=== PATIENT | female | born 1955 | race Caucasian/White ===

== ENCOUNTER 2018-09-13 21:58 | Emergency (ER) | payer BC, OTHER ==
[2018-09-13] MEDS ORDERED: 0.9 % SODIUM CHLORIDE 1,000 ML BAG IV ONE (22:17)
[2018-09-13] MEDS ORDERED: ONDANSETRON HCL IV 4 MG/2 ML VIAL IV ONE (22:17)
[2018-09-13] MEDS ORDERED: HYDROMORPHONE HCL 2 MG/ML VIAL IVP ONE ×2 (22:19→23:33)
[2018-09-13 22:23] LABS: ABSOLUTE NEUTROPHIL COUNT 12.68; HEMATOCRIT 50.9 % (35.0-47.0); HEMOGLOBIN 16.7 gm/dl (11.6-16.0); MEAN CELL VOLUME 86.1 fl (81-97); MEAN CORPUSCULAR HEMOGLOBIN 28.2 pg (27-33); MEAN CORPUSCULAR HGB CONC 32.8 g/dl (32-36); MEAN PLATELET VOLUME 9.5 fl (7.4-10.4); PLATELET COUNT 497 K/uL (130-400); RED BLOOD COUNT 5.91 M/uL (3.80-5.40); RED CELL DISTRIBUTION WIDTH 14.1 % (11.5-14.5); WHITE BLOOD COUNT W/O DIFF 15.7 K/uL (4.2-12.2)
--- NOTE | 2018-09-13 22:25 | Emergency Department Record ---
History of Present Illness - General Chief Complaint: Abdominal Pain Stated Complaint: ABDOMINAL PAIN,VOMITING Time Seen by Provider: 09/13/18 22:11 Source: Patient Mode of Arrival: Ambulatory Limitations: No limitations - History of Present Illness Initial Comments: pt is having ap since yesterday. it crampy and getting worse. it feels like her previous bowel obstruction. she had a normal bm yesterday. she vomited multiple times prior to coming in. MD Complaint: Abdominal pain Onset/Timin -: Days(s) Location: Diffuse, LLQ, RLQ Severity: Severe Severity scale (1-10): 10 Quality: Fullness Consistency: Constant, Getting worse Improves With: Nothing Worsens With: Nothing Associated Symptoms: Vomiting - Related Data Patient : No Home Medications Medication Instructions Recorded Confirmed Last Taken No Home Med [NO HOME MEDS] 09/13/18 09/13/18 Unknown Allergies Allergy/AdvReac Type Severity Reaction Status Date / Time No Known Drug Intolerances Allergy Unknown Unverified 08/08/13 10:16 Allergies: Allergy Unknown Uncoded 08/08/13 10:16 Travel Screening - Travel/Exposure Within Last 30 Days Have you traveled within the last 30 days?: No Review of Systems Reviewed: No additional complaints except as noted below Constitutional: Reports: As per HPI. Denies: Chills, Fever, Malaise, Night sweats, Weakness, Weight change Eyes: Reports: As per HPI. Denies: Eye discharge, Eye pain, Photophobia, Vision change ENT: Reports: As per HPI. Denies: Congestion, Dental pain, Ear pain, Epistaxis, Hearing loss, Throat pain Respiratory: Reports: As per HPI. Denies: Cough, Dyspnea, Hemoptysis, Stridor, Wheezes Cardiovascular: Reports: As per HPI. Denies: Arrhythmia, Chest pain, Dyspnea on exertion, Edema, Murmurs, Orthopnea, Palpitations, Paroxysmal nocturnal dyspnea, Rheumatic Fever, Syncope Endocrine: Reports: As per HPI. Denies: Fatigue, Heat or cold intolerance, Polydipsia, Polyuria Gastrointestinal: Reports: As per HPI, Abdominal pain, Nausea, Vomiting. Denies: Constipation, Diarrhea, Hematemesis, Hematochezia, Melena Genitourinary: Reports: As per HPI. Denies: Abnormal menses, Discharge, Dyspareunia, Dysuria, Frequency, Hematuria, Incontinence, Retention, Urgency Musculoskeletal: Reports: As per HPI. Denies: Arthralgia, Back pain, Gout, Joint swelling, Myalgia, Neck pain Skin: Reports: As per HPI. Denies: Bruising, Change in color, Change in hair/nails, Lesions, Pruritus, Rash Neurological: Reports: As per HPI. Denies: Abnormal gait, Confusion, Headache, Numbness, Paresthesias, Seizure, Tingling, Tremors, Vertigo, Weakness Psychiatric: Reports: As per HPI. Denies: Anxiety, Auditory hallucinations, Depression, Homicidal thoughts, Suicidal thoughts, Visual hallucinations Hematological/Lymphatic: Reports: As per HPI. Denies: Anemia, Blood Clots, Easy bleeding, Easy bruising, Swollen glands Past Medical History - SOCIAL HISTORY Smoking Status: Never smoker Alcohol Use: None Drug Use: None - RESPIRATORY Hx Respiratory Disorders: No - CARDIOVASCULAR Hx Cardio Disorders: No - NEURO Hx Neuro Disorders: No - GI Hx GI Disorders: No Hx Obstructive Bowel: Yes (Bowel Obstruction) - Hx Genitourinary Disorders: No - ENDOCRINE Hx Endocrine Disorders: No - MUSCULOSKELETAL Hx Musculoskeletal Disorders: No - PSYCH Hx Psych Problems: No - HEMATOLOGY/ONCOLOGY Hx Hematology/Oncology Disorders: No Family Medical History Any Significant Family History?: Yes Hx Heart Disease: Father Physical Exam - General General Appearance: Alert, Oriented x3, Cooperative, Moderate distress - Head Head exam: Normal inspection - Eye Eye exam: Normal appearance, PERRL, EOMI Pupils: Normal accommodation - ENT ENT exam: Normal exam, Mucous membranes moist, Normal external ear exam, Normal orophraynx Ear exam: Normal external inspection. negative: External canal tenderness Nasal Exam: Normal inspection. negative: Discharge, Sinus tenderness Mouth exam: Normal external inspection, Tongue normal Teeth exam: Normal inspection. negative: Dental caries Throat exam: Normal inspection. negative: Tonsillar erythema, Tonsillar exudate - Neck Neck exam: Normal inspection, Full ROM. negative: Tenderness - Respiratory Respiratory exam: Normal lung sounds bilaterally. negative: Respiratory distress - Cardiovascular Cardiovascular Exam: Normal rhythm, Normal heart sounds, Tachycardia - GI/Abdominal GI/Abdominal exam: Diminished bowel sounds, Distended, Guarding, Tenderness - Rectal Rectal exam: Deferred - exam: Deferred - Extremities Extremities exam: Normal inspection, Full ROM, Normal capillary refill. negative: Tenderness - Back Back exam: Reports: Normal inspection, Full ROM. Denies: Muscle spasm, Rash noted, Tenderness - Neurological Neurological exam: Alert, CN II-XII intact, Normal gait, Oriented X3 - Psychiatric Psychiatric exam: Normal affect, Normal mood - Skin Skin exam: Dry, Intact, Normal color, Warm Course Vital Signs 09/13/18 21:59 Pulse Rate 106 H Respiratory 24 Rate Blood Pressure 166/98 Pulse Ox 100 Medical Decision Making - Lab Data Result diagrams: 09/13/18 22:20 09/13/18 22:20 Disposition Disposition: Transfer Clinical Impression: SBO (small bowel obstruction), Renal mass Disposition: Acute Care Hospital Transfer Transfer To: [facility] Reason For Transfer: sbo Accepting Physician: dr light Time Discussed w/Accepting Physician: 01:31 Forms: Patient Portal Access Quality - Quality Measures Quality Measures: N/A - Blood Pressure Screening Does Patient Have Any of the Following: No Blood Pressure Classification: Hypertensive Reading Systolic Measurement: 166 Diastolic Measurement: 98 Screening for High Blood Pressure: < First Hypertensive BP, F/U Documented > [G8950] First Hypertensive Follow-up Interventions: Follow-up with rescreen GT 1 day and LT 4 weeks.
[2018-09-13 22:35] LABS: BILIRUBIN,TOTAL 0.9 mg/dL (0.2-1.0); TOTAL PROTEIN 8.2 g/dL (6.6-8.7)
[2018-09-13 22:40] LABS: ALB/GLOB RATIO 1.6 (1.1-1.8)
[2018-09-13] MEDS ORDERED: ONDANSETRON HCL IV 4 MG/2 ML VIAL IVP ONE (23:33)
[2018-09-14] MEDS ORDERED: HYDROMORPHONE HCL 2 MG/ML VIAL IVP ONE (01:44)
[2018-09-14] MEDS ORDERED: PROMETHAZINE HCL 12.5 MG in 0.9 % SODIUM CHLORIDE 100ML 100 ML IVPB ONE (03:00)
--- NOTE | 2018-09-15 06:16 | CT SCAN REPORT ---
EXAM: CT SCAN ABDOMEN/PELVIS W CONTRAST HISTORY: SHARP LOWER ABDOMINAL PAIN AND TENDERNESS FOR TWO DAYS. PRIOR BOWEL OBSTRUCTIONS. TECHNIQUE: Contrast-enhanced helical CT examination of the abdomen and pelvis is performed including delayed images through the kidneys with 95 mL of Omnipaque-300 utilized. The patient could not drink diagnostic amounts of oral contrast due to vomiting. COMPARISON: CT abdomen and pelvis with contrast dated 10/09/2009. FINDINGS: Minor patchy opacities within the dependent lung bases consistent with atelectasis. Infiltrate less likely. A small sliding-type hiatal hernia is present. The wall of the distal esophagus appears borderline to mildly prominent in thickness likely due to incomplete distention though a mucosal abnormality is not entirely excluded. No pleural or pericardial effusion. The liver dome is not entirely imaged. There is mild decreased density of the liver relative to the spleen consistent with steatosis. No suspicious focal hepatic lesion is identified. There is normal variant differential perfusion within the medial segment of the left liver lobe anteriorly adjacent to the fissure of the falciform ligaments, stable. The spleen, pancreas, and adrenal glands are normal in appearance. There is a large calcified stone within the gallbladder body/neck without gallbladder wall thickening or pericholecystic fluid. This stone measures 18 mm in diameter. No gross biliary ductal dilatation. No intra-abdominal nor retroperitoneal lymphadenopathy. There are several too small to characterize hypodense lesions scattered in each kidney. These are nonspecific but likely cysts. There is a contour-deforming complex mass arising from the posterolateral upper pole of the left kidney. This measures 2.8 x 3.1 cm. Its lateral portion appears relatively cystic. The medial portion appears solid. On the initial portal venous phase images, this solid component has a density of 148 Hounsfield units while on delayed images 87 Hounsfield units. These findings are suspicious for malignancy. This mass is new since the prior 2009 examination. No obstructive uropathy. The portal vein is patent. The renal veins and IVC appear patent. There is minor atherosclerosis of the iliac arteries. No gross aneurysmal dilatation of the abdominal aorta nor iliac arteries. There is likely a nabothian cyst within the anterior aspect of the cervix measuring 9 mm. This is more pronounced than on the prior examination on which it measures 5 mm. No other uterine mass is identified. The ovaries are not enlarged. No definite intrinsic urinary bladder abnormality though evaluation is limited by lack of distention. There are multiple loops of gas and fluid distended, dilated small bowel extending to the level of the central pelvis, right of midline, where there is solid stool within the most dilated segment measuring up to 5.9 cm. There is an abrupt zone of transition with the more distal small bowel decompressed. There is associated borderline to mild wall thickening of the most dilated segment without pneumatosis intestinalis. There is a small amount of adjacent fat stranding extending inferiorly to the level of the bladder dome and trace ascites. These findings are suspicious for moderate to high-grade obstruction. Gas and stool are noted throughout a nondilated colon to the level of the rectum. There is sigmoid diverticulosis without evidence of diverticulitis. No free intraperitoneal air. The appendix is not visualized with confidence. There is mild laxity of the midline lower abdominal wall without associated herniation. No lytic or blastic bone lesion. IMPRESSION: 1. DISTAL SMALL BOWEL OBSTRUCTION, DISCUSSED ABOVE, WITH SHARP ZONE OF TRANSITION WITHIN THE RIGHT HEMIPELVIS. PLEASE SEE ABOVE FOR FULL DISCUSSION. NO ABSCESS NOR EXTRALUMINAL AIR. 2. COMPLEX ENHANCING MASS WITHIN THE UPPER POLE OF THE LEFT KIDNEY SUSPICIOUS FOR MALIGNANCY. UROLOGY CONSULTATION IS RECOMMENDED. SEVERAL, TOO SMALL TO CHARACTERIZE, HYPODENSE LESIONS SCATTERED WITHIN EACH KIDNEY ARE NONSPECIFIC BUT LIKELY CYSTS. 3. CHOLELITHIASIS. 4. HEPATIC STEATOSIS. 5. COLONIC DIVERTICULOSIS WITHOUT EVIDENCE OF DIVERTICULITIS. 6. NABOTHIAN CYST. 7. APPARENT BORDERLINE TO MILD WALL THICKENING OF THE DISTAL ESOPHAGUS LIKELY DUE TO INCOMPLETE DISTENTION THOUGH A MUCOSAL ABNORMALITY IS NOT ENTIRELY EXCLUDED. JOB NUMBER: [id number] [facility]
== END 2018-09-14 03:13 | disposition short-term general hospital (02) ==
LOC: ER 21:58
DX: K56.609 Unspecified intestinal obstruction, unspecified as to partial versus complete obstruction (principal); N28.89 Other specified disorders of kidney and ureter; R11.2 Nausea with vomiting, unspecified; R10.84 Generalized abdominal pain
CPT/HCPCS: 74177; 80053; 83605; 83690; 85027; 96374; 96375; 96376; 99285; J2405; J2550; J7030

== ENCOUNTER 2018-11-25 10:55 | Day surgery (SDC) | payer BC ==
[2018-11-25] MEDS ORDERED: FENTANYL PF 100MCG/2ML VIAL IV ONE (10:56)
[2018-11-25] MEDS ORDERED: LIDOCAINE 2% MDV (20MG/ML) 20ML VIAL IV ONE (10:56)
[2018-11-25] MEDS ORDERED: PROPOFOL 10 MG/ML VIAL IV ONE (10:56)
--- NOTE | 2018-11-26 09:51 | Operative Note ---
OPERATION: ESOPHAGOGASTRODUODENOSCOPY with biopsy. PREOPERATIVE DIAGNOSIS: Chronic right upper quadrant pain. POSTOPERATIVE DIAGNOSES: 1. LA grade B esophagitis. 2. Antral gastritis. PROCEDURE: After informed consent was obtained from the patient, she was placed in the left lateral decubitus position in the endoscopy suite, sedated and monitored by the department of anesthesia. A well-lubricated JQI557 gastroscope was placed in the posterior oropharynx under direct visualization and passed to the proximal esophagus. The endoscope was advanced through the proximal, mid, and distal esophagus. The GE junction demonstrated 2 erosions, one approximately 7 mm in length. There are also edematous changes at the squamocolumnar border. The gastric body was inspected and was unremarkable. The antrum demonstrated patchy erythematous changes and perhaps some punctate erosions. The duodenal bulb and sweep were unremarkable. J-turn views of the proximal stomach were unrevealing. The endoscope was straightened. The antrum and lesser curve were biopsied. No excessive bleeding was noted. The stomach was deflated. The endoscope removed from the patient with no new findings noted. RECOMMENDATIONS: I would suggest the patient start omeprazole 20 mg once daily. She should follow with Dr. Mesa, as I do not see any obvious endoscopic finding to explain her significant pain. As always, thank you for allowing me to participate in the healthcare of your patients. ELKE
== END 2018-11-25 12:15 | disposition home or self-care (01) ==
LOC: HOP 10:55
PROVIDERS: ATTEND Internal Medicine Gastroenterology
DX: R10.11 Right upper quadrant pain (principal); R10.13 Epigastric pain; K21.9 Gastro-esophageal reflux disease without esophagitis; K29.70 Gastritis, unspecified, without bleeding; I10 Essential (primary) hypertension

== ENCOUNTER 2019-02-09 11:15 | Inpatient (IN) | payer BC ==
[2019-02-09] MEDS ORDERED: ONDANSETRON HCL IV 4 MG/2 ML VIAL IV ONE (11:50)
[2019-02-09] MEDS ORDERED: 0.9 % SODIUM CHLORIDE 1,000 ML BAG IV ONE (11:50)
[2019-02-09] MEDS ORDERED: KETOROLAC 30 MG/ML VIAL IVP ONE (11:50)
--- NOTE | 2019-02-09 11:52 | Emergency Department Record ---
History of Present Illness - General Chief Complaint: Abdominal Pain Stated Complaint: ABD PAIN Time Seen by Provider: 02/09/19 11:31 Source: Patient, RN notes reviewed Mode of Arrival: Wheelchair - History of Present Illness Initial Comments: patient states 9 pm last night and didn't feel well and she had ablation of mass on the left kidney mass cancer one week ago at [facility] in [place] Dr MiguelRadiologist oncologist after seeing Dr Swanson urology. She deve loped abd pain and nausea at 9pm last night and no vomiting or diarrhea and PSH of GB removal september 2018 Dr Mesa and renal mass followed by Dr Swanson and had radiation ablation one week ago. approach was throught he back in three spots. No chest pain, no dyspnea and no stools. Patient states she had a bowel obstruction but didn't need surgery for that. Onset/Timin -: Hour(s) Location: Suprapubic Associated Symptoms: Nausea - Related Data Home Medications Medication Instructions Recorded Confirmed Last Taken Amlodipine Besylate 5 mg PO DAILY 02/09/19 02/09/19 02/08/19 Allergies Allergy/AdvReac Type Severity Reaction Status Date / Time No Known Drug Allergies Allergy Verified 02/09/19 11:29 Travel Screening - Travel/Exposure Within Last 30 Days Have you traveled within the last 30 days?: No - Travel/Exposure Within Last Year Have you traveled outside the [place] in the last year?: No - Additonal Travel Details Have you been exposed to anyone with a communicable illness?: No - Travel Symptoms Symptom Screening: Stomach Pain Review of Systems Reviewed: No additional complaints except as noted below Constitutional: Reports: As per HPI. Denies: Chills, Fever, Malaise, Night sweats, Weakness, Weight change Eyes: Reports: As per HPI. Denies: Eye discharge, Eye pain, Photophobia, Vision change ENT: Reports: As per HPI. Denies: Congestion, Dental pain, Ear pain, Epistaxis, Hearing loss, Throat pain Respiratory: Reports: As per HPI. Denies: Cough, Dyspnea, Hemoptysis, Stridor, Wheezes Cardiovascular: Reports: As per HPI. Denies: Arrhythmia, Chest pain, Dyspnea on exertion, Edema, Murmurs, Orthopnea, Palpitations, Paroxysmal nocturnal dyspnea, Rheumatic Fever, Syncope Endocrine: Reports: As per HPI. Denies: Fatigue, Heat or cold intolerance, Polydipsia, Polyuria Gastrointestinal: Reports: As per HPI, Abdominal pain, Nausea, Other (three hankins on back red but no signs of infection ). Denies: Constipation, Diarrhea, Hematemesis, Hematochezia, Melena, Vomiting Genitourinary: Reports: As per HPI. Denies: Abnormal menses, Discharge, Dyspareunia, Dysuria, Frequency, Hematuria, Incontinence, Retention, Urgency Musculoskeletal: Reports: As per HPI. Denies: Arthralgia, Back pain, Gout, Joint swelling, Myalgia, Neck pain Skin: Reports: As per HPI. Denies: Bruising, Change in color, Change in hair/nails, Lesions, Pruritus, Rash Neurological: Reports: As per HPI. Denies: Abnormal gait, Confusion, Headache, Numbness, Paresthesias, Seizure, Tingling, Tremors, Vertigo, Weakness Psychiatric: Reports: As per HPI. Denies: Anxiety, Auditory hallucinations, Depression, Homicidal thoughts, Suicidal thoughts, Visual hallucinations Hematological/Lymphatic: Reports: As per HPI. Denies: Anemia, Blood Clots, Easy bleeding, Easy bruising, Swollen glands Past Medical History - SOCIAL HISTORY Smoking Status: Never smoker Alcohol Use: None Drug Use: None - RESPIRATORY Hx Respiratory Disorders: No - CARDIOVASCULAR Hx Cardio Disorders: Yes Hx Hypertension: Yes - NEURO Hx Neuro Disorders: No - GI Hx GI Disorders: Yes Hx Obstructive Bowel: Yes (Bowel Obstruction) - Hx Genitourinary Disorders: No Comment:: renal mass recently dx in September 2018 - ENDOCRINE Hx Endocrine Disorders: No - MUSCULOSKELETAL Hx Musculoskeletal Disorders: No - PSYCH Hx Psych Problems: No - HEMATOLOGY/ONCOLOGY Hx Hematology/Oncology Disorders: Yes Hx Cancer: Yes (Kidney September 2018) Family Medical History Any Significant Family History?: No Hx Heart Disease: Father Physical Exam - General General Appearance: Alert, Oriented x3, Cooperative, No acute distress - Head Head exam: Normal inspection - Eye Eye exam: Normal appearance, PERRL Pupils: Normal accommodation - ENT ENT exam: Normal exam, Mucous membranes moist, Normal external ear exam, Normal orophraynx, TM's normal bilaterally Ear exam: Normal external inspection. negative: External canal tenderness Nasal Exam: Normal inspection. negative: Discharge, Sinus tenderness Mouth exam: Normal external inspection, Tongue normal Teeth exam: Normal inspection. negative: Dental caries Throat exam: Normal inspection. negative: Tonsillar erythema, Tonsillar exudate - Neck Neck exam: Normal inspection, Full ROM. negative: Tenderness - Respiratory Respiratory exam: Normal lung sounds bilaterally. negative: Respiratory distress - Cardiovascular Cardiovascular Exam: Regular rate, Normal rhythm, Normal heart sounds - GI/Abdominal GI/Abdominal exam: Soft, Guarding, Tenderness (lower abd pain seem worse on the right lower quad ). negative: Distended, Rebound, Rigid - Rectal Rectal exam: Deferred - exam: Deferred - Extremities Extremities exam: Normal inspection, Full ROM, Normal capillary refill. negative: Tenderness - Back Back exam: Reports: Normal inspection, Full ROM. Denies: Muscle spasm, Rash noted, Tenderness - Neurological Neurological exam: Alert, Normal gait, Oriented X3, Reflexes normal - Psychiatric Psychiatric exam: Normal affect, Normal mood - Skin Skin exam: Dry, Intact, Normal color, Warm Course Vital Signs 02/09/19 11:18 Temperature 97.6 F Pulse Rate 102 H Respiratory 20 Rate Blood Pressure 152/102 Pulse Ox 98 - Reevaluation(s) Reevaluation #1: discussed case with Dr Anguiano, 02/09/19 13:30 Reevaluation #2: Will admit to Dr. Mayer for observation 02/09/19 13:31 Medical Decision Making - Data Complexity MDM Data: Labs Ordered and/or Reviewed (wbc 15,700), X-Ray Ordered and/or Reviewed (colitis on the CT scan) - Lab Data Result diagrams: 02/09/19 11:30 02/09/19 11:30 Disposition Clinical Impression: Colitis Abdominal pain Qualifiers: Abdominal location: lower abdomen, unspecified Qualified Code(s): R10.30 - Lower abdominal pain, unspecified Renal cell cancer Qualifiers: Laterality: left Qualified Code(s): C64.2 - Malignant neoplasm of left kidney, except renal pelvis Decision to Admit: Admit from ER Condition: (2) Stable Instructions: Abdominal Pain (ED) Forms: Patient Portal Access Time of Disposition: 13:30 Quality - Quality Measures Quality Measures: N/A - Blood Pressure Screening Does Patient Have Any of the Following: No, Active Dx of HTN Blood Pressure Classification: Hypertensive Reading Systolic Measurement: 152 Diastolic Measurement: 102 Screening for High Blood Pressure: Patient Exclusion, Hx of HTN [G9744]
[2019-02-09] MEDS ORDERED: HYDROMORPHONE HCL 2 MG/ML VIAL IVP ONE ×2 (12:01→14:00)
[2019-02-09 12:04] LABS: ABSOLUTE NEUTROPHIL COUNT 14.66; HEMATOCRIT 47.3 % (35.0-47.0); HEMOGLOBIN 15.6 gm/dl (11.6-16.0); MEAN CELL VOLUME 87.9 fl (81-97); MEAN PLATELET VOLUME 9.1 fl (7.4-10.4); PLATELET COUNT 470 K/uL (130-400); RED BLOOD COUNT 5.38 M/uL (3.80-5.40); RED CELL DISTRIBUTION WIDTH 13.9 % (11.5-14.5); WHITE BLOOD COUNT W/O DIFF 15.7 K/uL (4.2-12.2)
[2019-02-09 12:15] LABS: BLOOD UREA NITROGEN 19 mg/dL (8-23); CREATININE 0.9 mg/dL (0.5-0.9); EST GLOMERULAR FILTRATION RATE > 60 mL/min
[2019-02-09 12:16] LABS: LIPASE 34 U/L (13-60); TOTAL PROTEIN 7.8 g/dL (6.6-8.7)
[2019-02-09 12:18] LABS: GLUCOSE,RANDOM 144 mg/dL (74-109)
[2019-02-09 12:20] LABS: ALT/SGPT 24 U/L (<33); BILIRUBIN,DIRECT 0.3 mg/dL (0-0.3)
[2019-02-09 12:21] LABS: ALBUMIN 4.8 g/dL (4.0-5.0); ALKALINE PHOSPHATASE 117 U/L (35-104); AST/SGOT 29 U/L (10.0-35.0)
[2019-02-09 13:14] LABS: URINE APPEARANCE CLEAR; URINE BILIRUBIN NEGATIVE (NEGATIVE); URINE BLOOD SMALL (NEGATIVE); URINE COLOR YELLOW; URINE GLUCOSE (UA) NEGATIVE (NEGATIVE); URINE KETONE NEGATIVE (NEGATIVE); URINE LEUKOCYTE ESTERASE NEGATIVE (NEGATIVE); URINE NITRITE NEGATIVE (NEGATIVE)
[2019-02-09 13:22] LABS: URINE EPITHELIAL CELLS NONE SEEN (FEW); URINE WBC NONE SEEN (0-2/hpf)
--- NOTE | 2019-02-09 13:22 | CT SCAN REPORT ---
EXAMINATION: CT Abdomen and Pelvis without IV Contrast EXAM DATE: 02/09/2019 12:24 PM TECHNIQUE: Standard protocol CT imaging of the abdomen and pelvis was performed without intravenous c ontrast. Lack of intravenous contrast limits soft tissue evaluation. INDICATION: abd pain lower bilateral. radiation of left kidne COMPARISON: 09/14/[address] ENCOUNTER: Not applicable CT ABDOMEN AND PELVIS FINDINGS: Lung Bases: Unremarkable Cardiovascular: Unremarkable Liver: Unremarkable Gallbladder and Biliary Tree: Surgically absent gallbladder. No biliary obstruction. Spleen: Unremarkable Pancreas: Unremarkable Kidneys and Urinary Tract: Ill-defined heterogeneously hyperdense 3.5 cm superior left renal cortical mass. Adrenals: Unremarkable Other Retroperitoneal: Unremarkable Stomach: Unremarkable Small Bowel: Unremarkable Appendix: Unremarkable Colon: Long segments of colonic wall thickening from mid transverse through distal descending colon, mild pericolonic fat stranding at distal descending colon. Moderate to marked retained colonic stool. Moderate sigmoid diverticulosis without wall thickening. Peritoneum: No ascites or free air. Lymphatics: No lymphadenopathy Bladder: Unremarkable Reproductive Tract: Unremarkable Body Wall/ Musculoskeletal: Unremarkable IMPRESSION: 1. Long segment left colonic wall thickening consistent with colitis. Consider endoscopic correlation 2. Constipation 3. Indeterminate 3.8 cm heterogeneously hyperdense superior left renal cortical mass. Recommend furth er characterization with abdominal MRI with and without gadolinium The orange significant findings protocol was initiated at 02/09/2019 1:19 PM. NOTE: There is a follow-up recommendation in this report. Dictated by: Dallin Storm MD on 02/09/2019 1:13 PM. .
[2019-02-09] MEDS ORDERED: AMPICILLIN SODIUM/SULBACTAM NA 3 G in 0.9 % SODIUM CHLORIDE 100ML 100 ML IVPB ONE (13:57)
[2019-02-09] MEDS ORDERED: ACETAMINOPHEN 325 MG TAB PO PRN (15:38)
[2019-02-09] MEDS ORDERED: 0.9 % SODIUM CHLORIDE 1000ML 3,000 ML IV ONE (15:38)
[2019-02-09] MEDS ORDERED: AL HYDROX/MAG HYDROX 30ML UD PO PRN (15:44)
[2019-02-09] MEDS: 0.9 % SODIUM CHLORIDE 1000ML 3,000 ML IV ONE ×2 (16:55→22:04)
[2019-02-09] MEDS: HYDROMORPHONE HCL 2 MG/ML VIAL IVP PRN ×2 (17:10→21:06)
[2019-02-09] MEDS: ONDANSETRON HCL IV 4 MG/2 ML VIAL IVP PRN (17:10)
[2019-02-09] MEDS: AMPICILLIN SODIUM/SULBACTAM NA 3 G in 0.9 % SODIUM CHLORIDE 100ML 100 ML IVPB SCH ×2 (20:57→21:00)
[2019-02-10] MEDS: HYDROMORPHONE HCL 2 MG/ML VIAL IVP PRN ×5 (02:13→20:26)
[2019-02-10] MEDS: AMPICILLIN SODIUM/SULBACTAM NA 3 G in 0.9 % SODIUM CHLORIDE 100ML 100 ML IVPB SCH ×5 (02:17→22:10)
[2019-02-10] MEDS: 0.9 % SODIUM CHLORIDE 1000ML 3,000 ML IV ONE (07:00)
[2019-02-10] MEDS ORDERED: BISACODYL 5 MG TABLET PO ONE ×2 (08:30→14:01)
[2019-02-10] MEDS: POLYETHYLENE GLY 17 GM PACKET PO SCH ×3 (09:27→22:20)
[2019-02-10] MEDS: ENOXAPARIN 40 MG/0.4 ML SYR SC SCH (09:28)
[2019-02-10] MEDS: AMLODIPINE BESYLATE 5MG TAB PO SCH (09:28)
[2019-02-10] MEDS: 0.9 % SODIUM CHLORIDE 1000ML 1,000 ML IV SCH ×3 (09:29→18:50)
--- NOTE | 2019-02-10 12:27 | History & Physical ---
History of Present Illness - Date of Service Date of Service for History & Physical: 02/10/19 - History of Present Illness Admitting Diagnosis: colitis. renal cancer. abdominal pain History of Present Illness: patient developed lower and left abdominl pain whic started 9PM the day prior to admission and nausea and no vomiting no chest pain and she had radiation therapy to her left kidney which has cancer one week prior. Seen in the ED by myself and given pain control and CT of abd showed left sided colitis and constipation. Patient admitted for pain control and further evaluation by GI Dr. Anguiano and discussed the case with Dr Mesa on the phone and he would be available if she gets worse. Lactic acid normal. Travel Screening - Travel/Exposure Within Last 30 Days Have you traveled within the last 30 days?: No - Travel/Exposure Within Last Year Have you traveled outside the [place] in the last year?: No - Additonal Travel Details Have you been exposed to anyone with a communicable illness?: No - Travel Symptoms Symptom Screening: None Review of Systems Constitutional: Reports: As per HPI. Denies: Chills, Fever, Malaise, Night sweats, Weakness, Weight change Eyes: Reports: As per HPI. Denies: Eye discharge, Eye pain, Photophobia, Vision change ENT: Reports: As per HPI. Denies: Congestion, Dental pain, Ear pain, Epistaxis, Hearing loss, Throat pain Respiratory: Reports: As per HPI. Denies: Cough, Dyspnea, Hemoptysis, Stridor, Wheezes Cardiovascular: Reports: As per HPI. Denies: Arrhythmia, Chest pain, Dyspnea on exertion, Edema, Murmurs, Orthopnea, Palpitations, Paroxysmal nocturnal dyspnea, Rheumatic Fever, Syncope Endocrine: Reports: As per HPI. Denies: Fatigue, Heat or cold intolerance, Polydipsia, Polyuria Gastrointestinal: Reports: As per HPI, Abdominal pain, Nausea, Other (three hankins on back red but no signs of infection ). Denies: Constipation, Diarrhea, Hematemesis, Hematochezia, Melena, Vomiting Genitourinary: Reports: As per HPI. Denies: Abnormal menses, Discharge, Dyspareunia, Dysuria, Frequency, Hematuria, Incontinence, Retention, Urgency Musculoskeletal: Reports: As per HPI. Denies: Arthralgia, Back pain, Gout, Joint swelling, Myalgia, Neck pain Skin: Reports: As per HPI. Denies: Bruising, Change in color, Change in hair/nails, Lesions, Pruritus, Rash Neurological: Reports: As per HPI. Denies: Abnormal gait, Confusion, Headache, Numbness, Paresthesias, Seizure, Tingling, Tremors, Vertigo, Weakness Psychiatric: Reports: As per HPI. Denies: Anxiety, Auditory hallucinations, Depression, Homicidal thoughts, Suicidal thoughts, Visual hallucinations Hematological/Lymphatic: Reports: As per HPI. Denies: Anemia, Blood Clots, Easy bleeding, Easy bruising, Swollen glands Past Medical History - SOCIAL HISTORY Smoking Status: Never smoker Alcohol Use: None Drug Use: None - RESPIRATORY Hx Respiratory Disorders: No - CARDIOVASCULAR Hx Cardio Disorders: Yes Hx Hypertension: Yes - NEURO Hx Neuro Disorders: No - GI Hx GI Disorders: Yes Hx Obstructive Bowel: Yes (Bowel Obstruction) - Hx Genitourinary Disorders: Yes Comment:: renal mass recently dx in September 2018 - ENDOCRINE Hx Endocrine Disorders: No - MUSCULOSKELETAL Hx Musculoskeletal Disorders: No - PSYCH Hx Psych Problems: No - HEMATOLOGY/ONCOLOGY Hx Hematology/Oncology Disorders: Yes Hx Cancer: Yes (Kidney September 2018) Family Medical History Any Significant Family History?: Yes Hx Heart Disease: Father H&P Meds/Allergies - Allergies Allergies: Allergies Allergy/AdvReac Type Severity Reaction Status Date / Time No Known Drug Allergies Allergy Verified 02/09/19 11:29 - Home Medications Home Medications Medication Instructions Recorded Confirmed Last Taken Amlodipine Besylate 5 mg PO DAILY 02/09/19 02/09/19 02/08/19 - Active Medications Active Medications: Current Medications Acetaminophen (Tylenol 325mg) 650 mg PO Q6H PRN PRN Reason: PAIN - MILD(1-4)/FEVER Al Hydroxide/Mg Hydroxide (Maalox) 30 ml PO Q4H PRN PRN Reason: HEARTBURN Amlodipine Besylate (Norvasc) 5 mg PO DAILY [facility] Last Admin: 02/10/19 09:28 Dose: 5 mg Documented by: Enoxaparin Sodium (Lovenox) 40 mg SC DAILY [facility] Last Admin: 02/10/19 09:28 Dose: 40 mg Documented by: Hydromorphone HCl (Dilaudid) 1 mg IVP Q4H PRN PRN Reason: PAIN - SEVERE (8-10) Last Admin: 02/10/19 07:58 Dose: 1 mg Documented by: Ampicillin Sodium/Sulbactam (Sodium 3 g/ Sodium Chloride) 100 mls @ 200 mls/hr IVPB Q6H [facility] Stop: 02/10/19 15:29 Last Infusion: 02/10/19 10:18 Dose: Infused Documented by: Sodium Chloride () 1,000 mls @ 200 mls/hr IV .Q5H [facility] Last Admin: 02/10/19 09:29 Dose: 200 mls/hr Documented by: Ondansetron HCl (Zofran) 4 mg IVP Q4H PRN PRN Reason: NAUSEA Last Admin: 02/09/19 17:10 Dose: 4 mg Documented by: Polyethylene Glycol (Miralax) 17 gm PO BID [facility] Last Admin: 02/10/19 09:27 Dose: 17 gm Documented by: Physical Exam - Vital Signs Vital Signs: Vital Signs - Last 24 Hrs Temp Pulse Resp BP Pulse Ox 02/10/19 11:00 98.5 F 89 20 150/80 98 02/10/19 05:14 93 H 20 155/71 94 L 02/10/19 02:00 98 H 20 157/78 94 L 02/09/19 20:00 98.2 F 91 H 18 163/92 97 02/09/19 18:00 97.9 F 94 H 16 151/89 97 02/09/19 15:34 124 H 16 164/107 96 02/09/19 13:57 88 20 154/90 95 02/09/19 12:36 97 H 18 164/85 100 - General General Appearance: Alert, Oriented x3, Cooperative, No acute distress Limitations: No limitations - Head Head exam: Normal inspection Head exam detail: negative: Abrasion, Contusion - Eye Eye exam: Normal appearance, PERRL Pupils: Normal accommodation - ENT ENT exam: Normal exam, Mucous membranes moist, Normal external ear exam, Normal orophraynx, TM's normal bilaterally Ear exam: Normal external inspection. negative: External canal tenderness Nasal Exam: Normal inspection. negative: Discharge, Sinus tenderness Mouth exam: Normal external inspection, Tongue normal Teeth exam: Normal inspection. negative: Dental caries Throat exam: Normal inspection. negative: Tonsillar erythema, Tonsillar exudate - Neck Neck exam: Normal inspection, Full ROM. negative: Tenderness - Respiratory Respiratory exam: Normal lung sounds bilaterally. negative: Respiratory distress - Cardiovascular Cardiovascular Exam: Regular rate, Normal rhythm, Normal heart sounds - GI/Abdominal GI/Abdominal exam: Soft, Guarding, Tenderness (currently pain lower ABD bilaterally and more on the left lower quad). negative: Distended, Rebound, Rigid - Rectal Rectal exam: Deferred - exam: Deferred - Extremities Extremities exam: Normal inspection, Full ROM, Normal capillary refill. negative: Tenderness - Back Back exam: Reports: Normal inspection, Full ROM. Denies: Muscle spasm, Rash noted, Tenderness - Neurological Neurological exam: Alert, Normal gait, Oriented X3, Reflexes normal - Psychiatric Psychiatric exam: Normal affect, Normal mood - Skin Skin exam: Dry, Intact, Normal color, Warm Results - Labs Result Diagrams: 02/09/19 11:30 02/09/19 11:30 Labs Last 24 Hours: Laboratory Results - last 24 hr 02/09/19 02/09/19 02/09/19 11:30 13:00 15:00 Lactic Acid 0.8 Direct Bilirubin 0.3 AST 29 ALT 24 Alkaline Phosphatase 117 H Albumin 4.8 Urine Color Yellow Urine Appearance Clear Urine pH 6.5 Ur Specific Garrett 1.020 Urine Protein 30 mg/dl H Urine Glucose (UA) Negative Urine Ketones Negative Urine Blood Small H Urine Nitrite Negative Urine Bilirubin Negative Urine Urobilinogen 1.0 Ur Leukocyte Esterase Negative Urine RBC 3 - 6 Urine WBC None seen Ur Epithelial Cells None seen VTE H&P Assessment - Risk for VTE Risk for VTE: Yes Risk Level: Moderate Risk Assessment Date: 02/09/19 Risk Assessment Time: 18:00 VTE Orders Placed or Will Be Placed: Yes Plan - Detailed Diagnosis and Plan (1) Hypertension Current Visit: Yes Status: Acute Base Code: I10 - ESSENTIAL (PRIMARY) HYPERTENSION Priority: Low (2) Abdominal pain Current Visit: Yes Status: Acute Qualifiers: Abdominal location: lower abdomen, unspecified Qualified Code(s): R10.30 - Lower abdominal pain, unspecified Base Code: R10.9 - UNSPECIFIED ABDOMINAL PAIN Priority: High (3) Colitis Current Visit: Yes Status: Acute Base Code: K52.9 - NONINFECTIVE GASTROENTERITIS AND COLITIS, UNSPECIFIED Priority: High (4) Renal cell cancer Current Visit: Yes Status: Acute Qualifiers: Laterality: left Qualified Code(s): C64.2 - Malignant neoplasm of left kidney, except renal pelvis Base Code: C64.9 - MALIGNANT NEOPLASM OF UNSP KIDNEY, EXCEPT RENAL PELVIS Priority: Medium (5) Ischemic colitis Current Visit: Yes Status: Acute Base Code: K55.9 - VASCULAR DISORDER OF INTESTINE, UNSPECIFIED Priority: High Comment: discussed case with Dr Anguiano and will increase IV fluids to 200 ml per hour and use dulculax suppositories and miralax to stimulate a BM outpatient colonoscopy set up with Dr Anguiano in about 3 weeks
[2019-02-10] MEDS: ONDANSETRON HCL IV 4 MG/2 ML VIAL IVP PRN ×2 (18:25→22:21)
[2019-02-11] MEDS: HYDROMORPHONE HCL 2 MG/ML VIAL IVP PRN ×4 (02:45→17:01)
[2019-02-11] MEDS: 0.9 % SODIUM CHLORIDE 1000ML 1,000 ML IV SCH ×4 (02:50→16:14)
[2019-02-11] MEDS: ONDANSETRON HCL IV 4 MG/2 ML VIAL IVP PRN ×3 (03:08→12:17)
[2019-02-11] MEDS: AMPICILLIN SODIUM/SULBACTAM NA 3 G in 0.9 % SODIUM CHLORIDE 100ML 100 ML IVPB SCH ×3 (03:08→15:22)
[2019-02-11] MEDS: POLYETHYLENE GLY 17 GM PACKET PO SCH ×2 (06:05→09:05)
[2019-02-11] MEDS: AMLODIPINE BESYLATE 5MG TAB PO SCH (09:52)
[2019-02-11] MEDS: ENOXAPARIN 40 MG/0.4 ML SYR SC SCH (09:53)
[2019-02-11] MEDS ORDERED: BISACODYL 10 MG SUPP RC ONE (10:31)
--- NOTE | 2019-02-11 10:40 | Medical Records Consult ---
DATE OF CONSULTATION: REASON FOR CONSULTATION: Colitis. HISTORY OF PRESENT ILLNESS: The patient is a pleasant 63-year-old woman well known to me with a prior history of nausea, vomiting, and reflux disease who presented to the emergency department with abrupt onset of abdominal pain. Initially she thought the pain was suprapubic but ultimately came to the emergency room due to nausea and vomiting. She denied any melena, hematochezia, or diarrhea. She recently had undergone ablation of a left kidney mass in [place] at [facility]. She states that this was performed approximately 1 week ago. She denies any recent colonoscopies, denies any other medical contacts who are ill. She denies any obvious exacerbating or remitting factors. PAST MEDICAL HISTORY: Newly diagnosed renal mass. She has had a cholecystectomy in December of this year. MEDICATIONS: Amlodipine. ALLERGIES: None. FAMILY HISTORY: Noncontributory. SOCIAL HISTORY: Tobacco use is denied. Alcohol use is denied. Illicit drug use denied. REVIEW OF SYSTEMS: As noted per the emergency room note and history and physical by Dr. Mayer dated 02/09/2019. No other additions or deletions other than that noted in the History of Present Illness. PHYSICAL EXAMINATION: VITAL SIGNS: Temperature 98. 2, pulse 91, blood pressure 163/92, respiration 18, room air saturation 97%. GENERAL: She is awake, alert, oriented x3. Nontoxic in appearance and appears to be in minimal distress. HEENT: She is edentulous. Head is normocephalic and atraumatic. No temporal muscle wasting is noted. Skin is warm and dry. Non-jaundiced. Sclerae are anicteric. Extraocular movements are intact. No conjunctival injection appreciable. NECK: Supple. Trachea midline. No lymphadenopathy is obvious. HEART: Regular rate and rhythm without murmur. LUNGS: Clear to auscultation without wheezes, rales, or rhonchi. Normal to percussion. ABDOMEN: Diffusely tender particularly in the suprapubic and left upper quadrant. There is no guarding, rebound, or rigidity. Abdomen is nondistended and is soft. There are no peritoneal signs noted. EXTREMITIES: No clubbing, cyanosis, or edema. RADIOGRAPHIC DATA: CT of the abdomen demonstrates a left renal mass as well as extensive colitis involving the descending colon and distal transverse colon. LABORATORY DATA: White count 15.7, hemoglobin 15.6, hematocrit 47.3, platelets 470. Random glucose 144, total bilirubin 1.3, alkaline phosphatase 117, sodium 140, potassium 3.7, chloride 99, CO2 27. A small amount of blood on UA was noted. Lipase of 34. Alkaline phosphatase 117, total bilirubin 1.3. IMPRESSION: 1. Left-sided colitis which is most likely suspicious for ischemic colitis. 2. Recent left renal mass ablation. 3. Hypertension. RECOMMENDATIONS: At this point, I am highly suspicious the patient may have experienced ischemic colitis. There is also the possibility that there could be some thermal injury after recent ablation although this is unclear. I would suggest aggressive hydration as well as the use of a suppository, as the patient appears to have some constipation which may be exacerbating some of her abdominal symptoms. In 3-4 weeks, I would recommend the patient undergo a colonoscopy but I do not believe an urgent colonoscopy is necessary at this time. If her pain worsens and there is any other concern, perhaps a surgical evaluation would be helpful, but at this point I would treat her conservatively pending her response and clinical progress. As always, thank you for allowing me to participate in the healthcare of your patient. ELKE
--- NOTE | 2019-02-11 10:43 | Physician Progress Note ---
Subjective - Date Date of Physician Progress Note: 02/11/19 - Subjective Subjective Comment: Still having lower bilateral pain improving but still reqiring dilaudid IV and not able to eat and had a hard time will Jello but not taking some fluids and will decrease the IV rate to 100 ml per hour because her weight is up 8 pounds. She states her urine is yellow but not to concentrated. Location: Abdomen (bilateral lower abd pain) Severity scale (1-10): 5 Quality: Dull Consistency: Constant, Intermittent Improves with: Medication Associated symptoms: Loss of appetite Objective - Vital Signs Vital Signs: Vital Signs - Last 24 Hrs Temp Pulse Pulse Resp BP Pulse Ox 02/11/19 08:08 98.8 F 94 H 12 143/75 94 L 02/11/19 05:00 98.2 F 75 18 133/74 94 L 02/10/19 20:56 98.3 F 104 H 18 141/80 93 L 02/10/19 19:00 99.8 F H 103 H 156/83 91 L 02/10/19 14:57 99.7 F H 107 H 24 166/94 90 L 02/10/19 11:00 98.5 F 89 20 150/80 98 - General General Appearance: Alert, Oriented x3, Cooperative, No acute distress Limitations: No limitations - Head Head exam: Normal inspection Head exam detail: negative: Abrasion, Contusion - Eye Eye exam: Normal appearance, PERRL Pupils: Normal accommodation - ENT ENT exam: Normal exam, Mucous membranes moist, Normal external ear exam, Normal orophraynx, TM's normal bilaterally Ear exam: Normal external inspection. negative: External canal tenderness Nasal Exam: Normal inspection. negative: Discharge, Sinus tenderness Mouth exam: Normal external inspection, Tongue normal Teeth exam: Normal inspection. negative: Dental caries Throat exam: Normal inspection. negative: Tonsillar erythema, Tonsillar exudate - Neck Neck exam: Normal inspection, Full ROM. negative: Tenderness - Respiratory Respiratory exam: Normal lung sounds bilaterally. negative: Respiratory distress - Cardiovascular Cardiovascular Exam: Regular rate, Normal rhythm, Normal heart sounds - GI/Abdominal GI/Abdominal exam: Soft, Guarding, Tenderness (currently pain lower ABD bilaterally and more on the left lower quad). negative: Distended, Rebound, Rigid - Rectal Rectal exam: Deferred - exam: Deferred - Extremities Extremities exam: Normal inspection, Full ROM, Normal capillary refill. negative: Tenderness - Back Back exam: Reports: Normal inspection, Full ROM. Denies: Muscle spasm, Rash noted, Tenderness - Neurological Neurological exam: Alert, Normal gait, Oriented X3, Reflexes normal - Psychiatric Psychiatric exam: Normal affect, Normal mood - Skin Skin exam: Dry, Intact, Normal color, Warm Assessment and Plan - Assessment and Plan (1) Hypertension Current Visit: Yes Status: Acute Base Code: I10 - ESSENTIAL (PRIMARY) HYPERTENSION Priority: Low (2) Abdominal pain Current Visit: Yes Status: Acute Qualifiers: Abdominal location: lower abdomen, unspecified Qualified Code(s): R10.30 - Lower abdominal pain, unspecified Base Code: R10.9 - UNSPECIFIED ABDOMINAL PAIN Priority: High Comment: Abd pain is improving and still requiring dilaudid Patient tolerating water and Jello mad the pain worse abd feels softer No BM and will try another dulcolax and try increasing diet to full liquids consult reviewed Will make patient inpatient because not tolerating food and requiring dilaudid renal cancer and had radiation to the left kidney about oue week ago in [facility] discussed case with Dr Mesa on the phone and she gets worse he is available Will turn over case to Dr Saenz tomorrow (3) Colitis Current Visit: Yes Status: Acute Base Code: K52.9 - NONINFECTIVE GA STROENTERITIS AND COLITIS, UNSPECIFIED Priority: High (4) Renal cell cancer Current Visit: Yes Status: Acute Qualifiers: Laterality: left Qualified Code(s): C64.2 - Malignant neoplasm of left kidney, except renal pelvis Base Code: C64.9 - MALIGNANT NEOPLASM OF UNSP KIDNEY, EXCEPT RENAL PELVIS Priority: Medium (5) Ischemic colitis Current Visit: Yes Status: Acute Base Code: K55.9 - VASCULAR DISORDER OF INTESTINE, UNSPECIFIED Priority: High Comment: discussed case with Dr Anguiano and will increase IV fluids to 200 ml per hour and use dulculax suppositories and miralax to stimulate a BM outpatient colonoscopy set up with Dr Anguiano in about 3 weeks Results - Labs Result Diagrams: 02/09/19 11:30 02/09/19 11:30 DVT/PE Assessment - Risk for VTE Risk for VTE: No Risk Level: Moderate Risk Assessment Date: 02/09/19 Risk Assessment Time: 18:00 VTE Orders Placed or Will Be Placed: Yes - Active Medicaitons Current Medications: Current Medications Acetaminophen (Tylenol 325mg) 650 mg PO Q6H PRN PRN Reason: PAIN - MILD(1-4)/FEVER Al Hydroxide/Mg Hydroxide (Maalox) 30 ml PO Q4H PRN PRN Reason: HEARTBURN Amlodipine Besylate (Norvasc) 5 mg PO DAILY [facility] Last Admin: 02/11/19 09:52 Dose: 5 mg Documented by: Bisacodyl (Dulcolax) 10 mg RC NOW ONE Stop: 02/11/19 10:32 Bisacodyl (Dulcolax) 10 mg RC BID [facility] Enoxaparin Sodium (Lovenox) 40 mg SC DAILY [facility] Last Admin: 02/11/19 09:53 Dose: 40 mg Documented by: Hydromorphone HCl (Dilaudid) 1 mg IVP Q4H PRN PRN Reason: PAIN - SEVERE (8-10) Last Admin: 02/11/19 08:42 Dose: 1 mg Documented by: Sodium Chloride () 1,000 mls @ 200 mls/hr IV .Q5H [facility] Last Admin: 02/11/19 06:05 Dose: 200 mls/hr Documented by: Ampicillin Sodium/Sulbactam (Sodium 3 g/ Sodium Chloride) 100 mls @ 200 mls/hr IVPB Q6H [facility] Last Admin: 02/11/19 09:16 Dose: 200 mls/hr Documented by: Ondansetron HCl (Zofran) 4 mg IVP Q4H PRN PRN Reason: NAUSEA Last Admin: 02/11/19 08:42 Dose: 4 mg Documented by: Polyethylene Glycol (Miralax) 17 gm PO BID [facility] Last Admin: 02/11/19 09:05 Dose: Not Given Documented by: AMI Plan - Labs Result Diagrams: 02/09/19 11:30 02/09/19 11:30
[2019-02-11] MEDS ORDERED: SODSULF/SOD/NAHCO3/KCL/PEG (GOLYTELY) 4000 ML BTL PO PRN (11:08)
[2019-02-11] MEDS ORDERED: 0.9 % SODIUM CHLORIDE 1000ML 1,000 ML IV PRN (16:13)
[2019-02-11] MEDS: METOCLOPRAMIDE HCL 10 MG/2 ML VIAL IVP PRN ×2 (17:05→19:57)
[2019-02-11] MEDS ORDERED: HYDROMORPHONE HCL 2 MG/ML VIAL IVP PRN (17:20)
[2019-02-11 17:42] LABS: ABSOLUTE NEUTROPHIL COUNT 15.21; HEMATOCRIT 40.4 % (35.0-47.0); HEMOGLOBIN 12.9 gm/dl (11.6-16.0); MEAN CELL VOLUME 89.2 fl (81-97); MEAN CORPUSCULAR HEMOGLOBIN 28.5 pg (27-33); MEAN CORPUSCULAR HGB CONC 31.9 g/dl (32-36); MEAN PLATELET VOLUME 8.7 fl (7.4-10.4); PLATELET COUNT 400 K/uL (130-400); RED BLOOD COUNT 4.53 M/uL (3.80-5.40); RED CELL DISTRIBUTION WIDTH 13.4 % (11.5-14.5); WHITE BLOOD COUNT W/O DIFF 18.2 K/uL (4.2-12.2)
[2019-02-11 17:48] LABS: BLOOD UREA NITROGEN 13 mg/dL (8-23); CREATININE 0.7 mg/dL (0.5-0.9); EST GLOMERULAR FILTRATION RATE > 60 mL/min
[2019-02-11 17:51] LABS: GLUCOSE,RANDOM 92 mg/dL (74-109)
[2019-02-11] MEDS ORDERED: BISACODYL 10 MG SUPP RC SCH (22:00)
--- NOTE | 2019-02-13 06:44 | Discharge Summary ---
Providers Discharge Summary Date: 02/13/19 Date of admission: 02/09/19 14:52 Attending physician: Cristian Mayer Primary care physician: Cristian Mayer Consults: Consult Orders 02/09/19 15:38 Consult NOW Consulting Provider: KULWINDER PRETTY Physician Instructions: Reason For Exam: abd pain,colitis post radiation of kidney,renal ca Physical Exam - General General Appearance: Alert, Oriented x3, Cooperative, No acute distress Limitations: No limitations - Head Head exam: Normal inspection Head exam detail: negative: Abrasion, Contusion - Eye Eye exam: Normal appearance, PERRL Pupils: Normal accommodation - ENT ENT exam: Normal exam, Mucous membranes moist, Normal external ear exam, Normal orophraynx, TM's normal bilaterally Ear exam: Normal external inspection. negative: External canal tenderness Nasal Exam: Normal inspection. negative: Discharge, Sinus tenderness Mouth exam: Normal external inspection, Tongue normal Teeth exam: Normal inspection. negative: Dental caries Throat exam: Normal inspection. negative: Tonsillar erythema, Tonsillar exudate - Neck Neck exam: Normal inspection, Full ROM. negative: Tenderness - Respiratory Respiratory exam: Normal lung sounds bilaterally. negative: Respiratory distress - Cardiovascular Cardiovascular Exam: Regular rate, Normal rhythm, Normal heart sounds - GI/Abdominal GI/Abdominal exam: Soft, Guarding, Tenderness (currently pain lower ABD bilaterally and more on the left lower quad). negative: Distended, Rebound, Ri gid - Rectal Rectal exam: Deferred - exam: Deferred - Extremities Extremities exam: Normal inspection, Full ROM, Normal capillary refill. negative: Tenderness - Back Back exam: Reports: Normal inspection, Full ROM. Denies: Muscle spasm, Rash noted, Tenderness - Neurological Neurological exam: Alert, Normal gait, Oriented X3, Reflexes normal - Psychiatric Psychiatric exam: Normal affect, Normal mood - Skin Skin exam: Dry, Intact, Normal color, Warm Hospitalization - Hospitalization Admission Diagnosis: colitis. renal cancer. abdominal pain - Problem List/Discharge Diagnosis (1) Abdominal pain Status: Acute Discharge Diagnosis: Abdominal location: lower abdomen, unspecified Qualified Code(s): R10.30 - Lower abdominal pain, unspecified Base Code: R10.9 - UNSPECIFIED ABDOMINAL PAIN Comment: 02/11/19: - 2/2 colitis likely ischemic. Abdominal pain currently 01/20 - Not able to tolerate diet at this time. - Increase Dilaudid to 2mg Q4H PRN consult reviewed Will make patient inpatient because not tolerating food and requiring dilaudid renal cancer and had radiation to the left kidney about oue week ago in [facility] in [place] discussed case with Dr Mesa on the phone and she gets worse he is available Will turn over case to Dr Saenz tomorrow (2) Colitis Status: Acute Base Code: K52.9 - NONINFECTIVE GASTROENTERITIS AND COLITIS, UNSPECIFIED Comment: 02/09/19: - CT abdomen/plevis showing thickening of the long segement of the left colon wall consistent with colitis. - NPO, IVF: Nacl 0.9% @ 100ml/hr, received dulcolax and Miralax 17gm BID, incr ease Dilaudid 1mg Q4H to 2mg Q4H PRN. - Repeat WBCs show elevation to 18K, lactic acid pending. Transfer to [facility] with Surgical consult considering increasing pain and elevation in white counts. (3) Hypertension Status: Acute Base Code: I10 - ESSENTIAL (PRIMARY) HYPERTENSION Comment: 02/11/19: - BP not controlled. Pt on Amlodipine 5mg - Start IV Hydralazine 10mg QID until able to resume PO medication. (4) Hx of renal cell cancer Status: Acute Base Code: Z85.528 - PERSONAL HISTORY OF OTHER MALIGNANT NEOPLASM OF KIDNEY (5) Full code status Status: Acute Base Code: Z78.9 - OTHER SPECIFIED HEALTH STATUS Comment: 02/11/19: - The patient was full code status. - Hospitalization Course Disposition: Acute Care Hospital Transfer Hospital Course: The patient developed lower and left abdominal pain which started 9PM the day prior to admission and nausea and no vomiting no chest pain and she had radiation therapy to her left kidney which has cancer one week prior. Seen in the ED by myself and given pain control and CT of abd showed left sided colitis and constipation. Patient admitted for pain control and further evaluation by GI Dr. Pretty and discussed the case with Dr Mesa on the phone and he would be available if she gets worse. Lactic acid normal. Mrs. Pierce is a 63 y/o female who was admitted on 02/09/19 with acute abdominal pain and was found to colitis on CT abdomen. She was evaluated by GI who recommended conservative measures with bowel rest and stimulation to resolve constipation. The patient was signed out to Dr. Saenz by Dr. Mayer on Thursday afternoon. Reviewed patient on the evening of 02/11/19 and she still continued to have acute abdominal pain despite increased Dilaudid to 2mg Q4H. She had minimal bowel movement and her white count increased to 18K. She did receive half a gallon of Golytly earlier in the day with no relief and has not been able to tolerate any diet. I messaged Dr. Mesa regarding this case and forwarded the GI report and CT scan to him. He agreed that considering the worsening pain, lack of bowel movement and increased white count it would be better for her to be transferred and admitted to Dr. Eliud Gonzalez for further evaluation. I will communicate this with Dr. Sinclair when he returns. Procedures: Imaging and X-Rays 02/09/19 11:52 ABDOMEN/PELVIS WO CONTRAST [CT] Stat Abnormal Labs: Abnormal Lab Results 02/09/19 02/09/19 02/09/19 Range/Units 11:30 11:30 13:00 WBC 15.7 H (4.2-12.2) K/uL Hct 47.3 H (35.0-47.0) % MCHC (32-36) g/dl Plt Count 470 H (130-400) K/uL Neutrophils % 95.0 H (47-80) % Lymphocytes 3.0 L (16-45) % Random Glucose 144 H (74-109) mg/dL Calcium (8.8-10.2) mg/dL Total Bilirubin 1.30 H (0.2-1.0) mg/dL Alkaline Phosphatase 117 H (35-104) U/L Urine Protein 30 mg/dl H (NEGATIVE) Urine Blood Small H (NEGATIVE) 02/11/19 02/11/19 Range/Units 17:33 17:33 WBC 18.2 H (4.2-12.2) K/uL Hct (35.0-47.0) % MCHC 31.9 L (32-36) g/dl Plt Count (130-400) K/uL Neutrophils % 83.0 H (47-80) % Lymphocytes 10.0 L (16-45) % Random Glucose (74-109) mg/dL Calcium 8.4 L (8.8-10.2) mg/dL Total Bilirubin (0.2-1.0) mg/dL Alkaline Phosphatase (35-104) U/L Urine Protein (NEGATIVE) Urine Blood (NEGATIVE) Condition at Discharge: (2) Stable Discharge Medications - Discharge Medications Home Medications: Ambulatory Orders Amlodipine Besylate 5 mg PO DAILY 02/09/19 [Last Taken 02/08/19] Discharge Plan - Discharge Instructions Instructions: Abdominal Pain (ED) Quality Measures - Quality Measures Quality Measures: Documentation of Current Medications in Medical Record, Screening for High Blood Pressure and F/U Documented - Current Medications Quality Measure: Measure #130: Documentation of Current Medications Documentation of Current Medications: <Current Medications Documented/Reviewed> [G8427] - Blood Pressure Screening Quality Measure: Screening for High Blood Pressure and Follow-Up Documented Does Patient Have Any of the Following: Active Dx of HTN Blood Pressure Classification: Hypertensive Reading Systolic Measurement: 152 Diastolic Measurement: 102 Screening for High Blood Pressure: Patient Exclusion, Hx of HTN [G9744] - Elder Abuse Suspicion Index EASI Reference Information: Sheela MARIE, Jorje C, Liat D, Aurea Rivera.Development and validation of a tool to assist physicians identification of elder abuse: The Elder Abuse Suspicion Index (EASI ). Journal of Elder Abuse and Neglect, 2008; 20 (3): 276-300.
== END 2019-02-11 20:02 | disposition short-term general hospital (02) | DRG 392 ==
LOC: ER 11:15 → MEDSURG 14:52 → OBSVTOIN 14:52
PROVIDERS: ADMIT Emergency Medicine; ATTEND Emergency Medicine
DX: K52.9 Noninfective gastroenteritis and colitis, unspecified (principal); C64.2 Malignant neoplasm of left kidney, except renal pelvis; I10 Essential (primary) hypertension
CPT/HCPCS: 74176; 80048; 80076; 81001; 83605; 83690; 85027; 96365; 96375; 96376; 99285; J0295; J1650; J1885; J2405; J2765; J7030

== ENCOUNTER 2019-04-11 09:17 | Day surgery (SDC) | payer BC ==
[2019-04-11] MEDS ORDERED: LIDOCAINE 2% MDV (20MG/ML) 20ML VIAL IV ONE (09:18)
[2019-04-11] MEDS ORDERED: PROPOFOL 10 MG/ML VIAL IV ONE (09:18)
--- NOTE | 2019-04-20 09:01 | Operative Note ---
OPERATION: COLONOSCOPY with cold forceps polypectomy and photo. PREOPERATIVE DIAGNOSIS: History of colitis. POSTOPERATIVE DIAGNOSES: 1. Scarring changes of the splenic flexure and descending colon consistent with healed ischemic change. 2. Sigmoid diverticulosis, moderate. 3. Diminutive sigmoid colon polyp. PREPARATION QUALITY: Good. ESTIMATED BLOOD LOSS: Minimal. SPECIMENS: Sigmoid colon polyp. COMPLICATIONS: None apparent. PROCEDURE: After informed consent was obtained from the patient, she was placed in the left lateral decubitus position in the endoscopy suite, sedated and monitored by the department of anesthesia. Digital rectal examination was unremarkable. A well-lubricated [id number] colonoscope was inserted into the rectum and advanced to the cecum. Preparation quality was good to excellent. The cecum, cecal bulb, distal portion of the terminal ileum, appendiceal orifice, ascending colon, and transverse colon were unremarkable. The area of the splenic flexure and descending colon demonstrated deformity related to scarring changes presumably from prior ischemic inflammation which has subsequently resolved. There were noted to be moderate diverticular changes in the sigmoid colon as well as a diminutive polyp. The polyp was removed with a cold forceps. Minimal bleeding was noted. Forward and J-turn views of the rectum and anorectum were unremarkable. The endoscope was straightened, the rectal ampulla deflated, and the endoscope was removed. RECOMMENDATIONS: I would suggest the patient follow a high-fiber diet. She should undergo repeat colonoscopy in 10 years. As always, thank you for allowing me to participate in the healthcare of your patients. ELKE
== END 2019-04-11 11:37 | disposition home or self-care (01) ==
LOC: HOP 09:17
PROVIDERS: ATTEND Internal Medicine Gastroenterology
DX: D12.5 Benign neoplasm of sigmoid colon (principal); K57.30 Diverticulosis of large intestine without perforation or abscess without bleeding; K52.9 Noninfective gastroenteritis and colitis, unspecified